=== PATIENT | female | born 1980 | race American Indian/Alaskan Native ===

== ENCOUNTER 2018-04-28 16:23 | Emergency (ER) | payer MEDICAID ==
[2018-04-28 17:49] LABS: Basophils # (Auto) 0.1 K/mm3 (0.0-0.1); Basophils % (Auto) 0.7 % (0.0-1.8); Eosinophils # (Auto) 0.2 K/mm3 (0.0-0.4); Eosinophils % (Auto) 2.7 % (0.0-4.3); Hematocrit 45.5 % (30.3-42.9); Hemoglobin 14.9 gm/dl (10.1-14.3); Lymphocytes % (Auto) 43.9 % (13.4-35.0); Mean Corpuscular HGB Conc 33 % (30-34); Mean Corpuscular Hemoglobin 32 pg (28-32); Mean Corpuscular Volume 97 fl (79-97); Monocytes # (Auto) 0.6 K/mm3 (0.0-0.8); Monocytes % (Auto) 6.8 % (0.0-7.3); Platelet Count 218 K/mm3 (140-440); Red Blood Count 4.69 M/mm3 (3.65-5.03); Red Cell Distribution Width 13.6 % (13.2-15.2)
[2018-04-28 18:10] LABS: BUN/Creatinine Ratio 11; Blood Urea Nitrogen 9 mg/dL (7-17); Calcium 9.4 mg/dL (8.4-10.2); Hemolysis Index 18
--- NOTE | 2018-04-28 23:57 | Emergency Department Report ---
ED General Adult HPI - General Chief complaint: Urogenital-Female Stated complaint: SORE THROAT Time Seen by Provider: 04/28/18 23:47 Source: patient Mode of arrival: Ambulatory Limitations: No Limitations - History of Present Illness Initial comments: This is 37-year-old female here with sore throat with white spots in the back of her throat. She said it started last night. Denies any fever. Reports chills. She said her was treated for mono 1 month ago. Denies any feeling of tiredness. Strep throat 3/10 worse with swallowing. No alleviating factor. Medication taken for pain. Denies any nausea or vomiting. Denies any cough, shortness of breath or chest pain. Denies any abdominal pain. Reports that she has a slight headache that is at 2/10 achy and generalized. No exacerbating factor in no alleviating factor. Patient also reports that she has copy white discharge with vaginal itching that started a week ago. She says she's had this in the past and she had yeast infection. Patient's is not concerned for STD and does not want to be treated for STD. She said sheis a yeast infection. Denies any urinary burning frequency or urgency. MD Complaint: sore throat, headache, yeast infection Onset/Timin -: Last night Location: head, mouth (throat) Radiation: non-radiation Severity scale (0 -10): 3 Quality: aching, other (sore) Consistency: constant Improves with: none Worsens with: none Associated Symptoms: fever/chills (chills), headaches. denies: confusion, chest pain, cough, diaphoresis, loss of appetite, malaise, nausea/vomiting, rash , seizure, shortness of breath, syncope, weakness Treatments Prior to Arrival: none - Related Data Previous Rx's Medication Instructions Recorded Last Taken Type Fluconazole [Diflucan TAB] 150 mg PO QDAY 2 Days #2 tablet 04/29/18 Unknown Rx Allergies Allergy/AdvReac Type Severity Reaction Status Date / Time No Known Allergies Allergy Unverified 04/28/18 17:18 ED Review of Systems ROS: Stated complaint: SORE THROAT Other details as noted in HPI Constitutional: chills. denies: fever, malaise, weakness Eyes: denies: eye pain, eye discharge ENT: throat pain. denies: ear pain Respiratory: denies: cough, orthopnea, shortness of breath, SOB with exertion, SOB at rest, wheezing Cardiovascular: denies: chest pain, palpitations, edema, syncope Gastrointestinal: denies: abdominal pain, nausea, vomiting, diarrhea Genitourinary: discharge. denies: urgency, dysuria, frequency, hematuria, abnormal menses Musculoskeletal: denies: back pain, joint swelling, arthralgia Skin: denies: rash, lesions Neurological: headache. denies: weakness, numbness, paresthesias, confusion, abnormal gait, vertigo ED Past Medical Hx - Past Medical History Previous Medical History?: No - Surgical History Past Surgical History?: No - Family History Family history: no significant - Social History Smoking Status: Current Every Day Smoker Substance Use Type: Alcohol - Medications Home Medications: Home Medications Medication Instructions Recorded Confirmed Last Taken Type Fluconazole [Diflucan TAB] 150 mg PO QDAY 2 Days #2 tablet 04/29/18 Unknown Rx ED Physical Exam - General Limitations: No Limitations General appearance: alert, in no apparent distress - Head Head exam: Present: atraumatic, normocephalic, normal inspection, other (normal exam) - Eye Eye exam: Present: normal appearance, PERRL, EOMI Pupils: Present: normal accommodation - ENT ENT exam: Present: mucous membranes moist, TM's normal bilaterally, normal external ear exam, other (uvula midline and oral airways patent.). Absent: normal exam, normal orophraynx (positive erythema and exudate with erythema.) - Neck Neck exam: Present: normal inspection, full ROM, lymphadenopathy (anterior cervical, bilateral), other (no C-spine tenderness). Absent: tenderness, meningismus - Respiratory Respiratory exam: Present: normal lung sounds bilaterally. Absent: respiratory distress, chest wall tenderness - Cardiovascular Cardiovascular Exam: Present: regular rate, normal rhythm, normal heart sounds. Absent: systolic murmur, diastolic murmur - GI/Abdominal GI/Abdominal exam: Present: soft, normal bowel sounds. Absent: distended, tenderness, guarding, rebound, rigid, organomegaly - Extremities Exam Extremities exam: Present: normal inspection, full ROM, normal capillary refill , other (no clubbing, cyanosis or edema. +2 pulses all extremities and no neurovascular compromise). Absent: tenderness, pedal edema, joint swelling, calf tenderness - Back Exam Back exam: Present: normal inspection, full ROM, other (ambulates without any difficulties). Absent: tenderness, CVA tenderness (R), CVA tenderness (L), muscle spasm, paraspinal tenderness, vertebral tenderness, rash noted - Neurological Exam Neurological exam: Present: alert, oriented X3, normal gait, reflexes normal, other (no focal neurological deficits). Absent: motor sensory deficit - Psychiatric Psychiatric exam: Present: normal affect, normal mood - Skin Skin exam: Present: warm, dry, intact, normal color. Absent: rash ED Course Vital Signs 04/28/18 04/29/18 17:11 00:30 Temperature 98.1 F 98 F Pulse Rate 74 78 Respiratory 16 16 Rate Blood Pressure 118/74 Blood Pressure 114/76 [Left] O2 Sat by Pulse 99 100 Oximetry - Reevaluation(s) Reevaluation #1: 04/29/18 00:15 Patient shows to be treated with Bicillin LA. She was given 1.2 million units IM times one dose without any adverse reaction. This is treated strep empirically based on Centor criteria patient with headache, enlarged cervical lymph nodes, pharyngeal erythema with exudates and complain of chill. No cough or congestion present. ED Medical Decision Making - Lab Data Result diagrams: 04/28/18 17:19 04/28/18 17:19 Lab Results 04/28/18 04/28/18 Range/Units 17:19 17:19 WBC 9.0 (4.5-11.0) K/mm3 RBC 4.69 (3.65-5.03) M/mm3 Hgb 14.9 H (10.1-14.3) gm/dl Hct 45.5 H (30.3-42.9) % MCV 97 (79-97) fl MCH 32 (28-32) pg MCHC 33 (30-34) % RDW 13.6 (13.2-15.2) % Plt Count 218 (140-440) K/mm3 Lymph % (Auto) 43.9 H (13.4-35.0) % Lea % (Auto) 6.8 (0.0-7.3) % Eos % (Auto) 2.7 (0.0-4.3) % Baso % (Auto) 0.7 (0.0-1.8) % Lymph # 4.0 (1.2-5.4) K/mm3 Lea # 0.6 (0.0-0.8) K/mm3 Eos # 0.2 (0.0-0.4) K/mm3 Baso # 0.1 (0.0-0.1) K/mm3 Seg Neutrophils % 45.9 (40.0-70.0) % Seg Neutrophils # 4.1 (1.8-7.7) K/mm3 Sodium 139 (137-145) mmol/L Potassium 3.7 (3.6-5.0) mmol/L Chloride 100.8 (98-107) mmol/L Carbon Dioxide 27 (22-30) mmol/L Anion Gap 15 mmol/L BUN 9 (7-17) mg/dL Creatinine 0.8 (0.7-1.2) mg/dL Estimated GFR > 60 ml/min BUN/Creatinine Ratio 11 % Glucose 89 (65-100) mg/dL Calcium 9.4 (8.4-10.2) mg/dL - Medical Decision Making ED course: 37-year-old patient presents to emergency room report that she has white pus pockets in the back of her throat that started 1 day prior. She said her had mono 1 month ago. She has headache and chills. She is here to be evaluated. Patient examined by myself and she has exudative oropharynx, erythema, anterior cervical lymphadenopathy. CBC and BMP is stable, abdominal exam is normal. Patient most likely to have exudative pharyngitis rather than mono. Based on Centor criteria patient will be treated for strep throat. I discussed lab results and diagnosis a patient and she requested to be treated with Bicillin injection instead of penicillin tablets. She was given Bicillin 1.2 million units IM in emergency room without any adverse reaction. Patient stable, vital signs stable, afebrile, she is also requesting to be treated for yeast infection because she says that she is having vaginal itching with clumpy discharge and she's had this in the past. Patient given prescription for Diflucan 100 mg 2 days. I discussed with her she is follow-up with primary care physician and her [employer] and she voiced understanding. Patient discharged home in stable condition. - Differential Diagnosis [employer], exudative pharyngitis, URI, viral infection Critical care attestation.: If time is entered above; I have spent that time in minutes in the direct care of this critically ill patient, excluding procedure time. ED Disposition Clinical Impression: Exudative pharyngitis, Yeast infection of the vagina, Cervical lymphadenopathy Headache Qualifiers: Headache type: unspecified Headache chronicity pattern: acute headache Intractability: not intractable Qualified Code(s): R51 - Headache Disposition: DC-01 TO HOME OR SELFCARE Is pt being admited?: No Does the pt Need Aspirin: No Condition: Stable Instructions: Fluconazole (By mouth), Strep Throat (ED) Additional Instructions: Please take Diflucan for yeast infection as discussed Increasing fluid intake. Follow-up with primary care physician in 3 days and if he do not have one follow -up with [facility] You're treated for strep throat and emergency room with long-acting penicillin injection. Follow-up with CANV[facility]ING MANAGER in 3 days. Prescriptions: Fluconazole [Diflucan TAB] 150 mg PO QDAY 2 Days #2 tablet Referrals: PRIMARY CAREMD [Primary Care Provider] - 05/01/18 [facility] [Outside] - 05/01/18 ROSY SANTOS MD [Staff Physician] - 05/01/18 Forms: Work/School Release Form(ED)
[2018-04-28] MEDS ORDERED: BICILLIN L-A IM ONE (23:58)
[2018-04-29 00:32] VITALS: BP 114/76
== END 2018-04-29 00:34 | disposition home or self-care (01) ==
LOC: ED 16:23
DX: J02.9 Acute pharyngitis, unspecified (principal); B37.9 Candidiasis, unspecified; R51 Headache; R59.0 Localized enlarged lymph nodes; F17.200 Nicotine dependence, unspecified, uncomplicated
CPT/HCPCS: 36415; 80048; 85025; 96372; 99283; J0561